=== PATIENT | male | born 1955 | race Caucasian/White ===

== ENCOUNTER 2017-01-05 00:36 | Emergency (ER) | payer OTHER, MEDICARE ==
[~2017-01-05] VITALS: Ht 170.2 cm; Wt 113.4 kg
[2017-01-05 00:36] VITALS: BP 171/98; PULSE 69; RESP 19; TEMP 97.7; O2SAT 100
[2017-01-05] MEDS ORDERED: NACL 0.9% 1,000 ML IV ONE (00:45)
[2017-01-05 01:15] LABS: ABG TOTAL HEMOGLOBIN 11.1 G/dL (12.0-18.0); BLOOD GAS BASE EXCESS -2.1 mmol/L (-3.0-3.0); BLOOD GAS PH 7.565 (7.350-7.450)
[2017-01-05 01:16] LABS: BLOOD GAS COHb% 0.3 % (0.5-1.5); BLOOD O2Hb% 98.4 % (94.0-97.0)
[2017-01-05 01:24] LABS: INR 0.9 (0.80-1.20); PROTHROMBIN TIME 9.6 SECS (9.5-12.5)
[2017-01-05 01:28] LABS: CALCIUM 8.1 mg/dL (8.4-11.0); POTASSIUM 4.5 mmol/L (3.5-5.1)
[2017-01-05 01:34] LABS: TOTAL BILIRUBIN 0.4 mg/dL (0.0-1.0); TOTAL PROTEIN, SERUM 6.6 g/dL (6.4-8.3)
[2017-01-05 01:39] LABS: CREATININE 10.75 mg/dL (0.55-1.30)
[2017-01-05] MEDS ORDERED: NEPH PO (01:59)
[2017-01-05] MEDS ORDERED: INSU100V9 SUBCUT (01:59)
[2017-01-05] MEDS ORDERED: FURO-150 PO (01:59)
[2017-01-05] MEDS ORDERED: INSU100V26 SUBCUT (01:59)
[2017-01-05] MEDS ORDERED: LOSA25TA3 PO (01:59)
[2017-01-05 02:05] LABS: HEMATOCRIT 32.8 % (36-54); HEMOGLOBIN 11.1 g/dL (14.0-18.0); MEAN CORPUSCULAR HEMOGLOBIN 32 pg (27-31); MEAN CORPUSCULAR VOLUME 94 fL (79.0-98.0); RED BLOOD CELL COUNT(AUTO) 3.51 MIL/uL (4.2-6.2); WHITE BLOOD COUNT (AUTO) 8.5 K/uL (4.8-10.8)
[2017-01-05 02:06] LABS: BASOPHILS % (AUTO) 1.4 % (0.0-2.0); EOSINOPHILS # (AUTO) 0.7 K/uL (0.0-0.4); EOSINOPHILS % (AUTO) 8.2 % (0.0-4.0); LYMPHOCYTES # (AUTO) 1.6 K/uL (1.0-5.5); LYMPHOCYTES % (AUTO) 19.3 % (20.5-51.5); MEAN CORPUSCULAR HGB CONC 34 % (32-36); MONOCYTES # (AUTO) 0.9 K/uL (0.0-1.0); MONOCYTES % (AUTO) 10.6 % (1.7-9.3); NEUTROPHILS # (AUTO) 5.2 K/uL (1.8-7.7); NEUTROPHILS % (AUTO) 60.5 % (40.0-70.0); PLATELET COUNT (AUTO) 246 K/uL (130-430); RED CELL DISTRIBUTION WIDTH 13.2 % (9.0-15.0)
[2017-01-05 02:07] LABS: BASOPHILS # (AUTO) 0.1 K/uL (0.0-0.2)
[2017-01-05] MEDS ORDERED: LIDOCAINE VISCOUS 2%, 15 ML UDC MM ONE (02:30)
[2017-01-05 03:53] VITALS: BP 140/62; PULSE 65; RESP 18; TEMP 97.9; O2SAT 99
== END 2017-01-05 03:53 | disposition home or self-care (01) ==
LOC: SED 00:36
DX: R06.4 Hyperventilation (principal); E11.29 Type 2 diabetes mellitus with other diabetic kidney complication; N28.9 Disorder of kidney and ureter, unspecified
CPT/HCPCS: 36415; 36600; 71010; 80053; 82803; 83605; 83880; 84484; 85025; 85379; 85610; 85730; 87040; 93005; 96360; 96361; 99285; J7030

== ENCOUNTER 2018-02-17 07:53 | Emergency (ER) | payer OTHER, MEDICARE ==
[~2018-02-17] VITALS: Ht 170.2 cm; Wt 107.0 kg
[~2018-02-17 07:53] MED LIST: FURO-150 PO; INSU100V26 SUBCUT; INSU100V9 SUBCUT; LOSA25TA3 PO; NEPH PO
[2018-02-17 08:00] VITALS: BP_SYST 170
[2018-02-17 08:34] LABS: BASOPHILS % (AUTO) 0.6 % (0.0-2.0); EOSINOPHILS # (AUTO) 0.4 K/uL (0.0-0.4); EOSINOPHILS % (AUTO) 5.3 % (0.0-4.0); HEMATOCRIT 25.6 % (36-54); HEMOGLOBIN 8.5 g/dL (14.0-18.0); LYMPHOCYTES # (AUTO) 1.3 K/uL (1.0-5.5); LYMPHOCYTES % (AUTO) 15.8 % (20.5-51.5); MEAN CORPUSCULAR HEMOGLOBIN 32 pg (27-31); MEAN CORPUSCULAR HGB CONC 33 % (32-36); MEAN CORPUSCULAR VOLUME 96 fL (79.0-98.0); MONOCYTES # (AUTO) 0.9 K/uL (0.0-1.0); NEUTROPHILS # (AUTO) 5.4 K/uL (1.8-7.7); NEUTROPHILS % (AUTO) 67.3 % (40.0-70.0); PLATELET COUNT (AUTO) 274 K/uL (130-430); RED BLOOD CELL COUNT(AUTO) 2.66 MIL/uL (4.2-6.2); RED CELL DISTRIBUTION WIDTH 14.4 % (9.0-15.0)
[2018-02-17 08:37] LABS: CALCIUM 9.3 mg/dL (8.4-11.0); POTASSIUM 4.9 mmol/L (3.5-5.1)
[2018-02-17 08:40] LABS: PROTHROMBIN TIME 9.9 SECS (9.5-12.5)
[2018-02-17 08:42] LABS: ALBUMIN 3.5 g/dL (3.4-4.8); TOTAL BILIRUBIN 0.4 mg/dL (0.0-1.0)
[2018-02-17 08:44] LABS: CREATININE 8.76 mg/dL (0.55-1.30)
[2018-02-17] MEDS ORDERED: LevALBUTEROL HCL 1.25 MG/0.5 ML *CONC.* VIAL.NEB (XOPENEX CONC.) INH ONE (08:45)
[2018-02-17 08:50] LABS: BILIRUBIN,URINE NEGATIVE (NEGATIVE); BLOOD, URINE 1+ (NEGATIVE); CLARITY/URINE CLEAR (CLEAR); COLOR,URINE YELLOW (YELLOW); GLUCOSE,URINE 3+ (NEGATIVE); KETONES,URINE NEGATIVE (NEGATIVE); LEUKOCYTE ESTERASE ,URINE NEGATIVE (NEGATIVE); NITRITE, URINE NEGATIVE (NEGATIVE); PROTEIN URINE 2+ (NEGATIVE); UROBILINOGEN,URINE 0.2 (0.2-1.0)
[2018-02-17 08:59] LABS: BACTERIA,URINE FEW /HPF (None Seen); MUCUS,URINE None Seen /LPF (None Seen); RBC,URINE 0-3 /HPF (0-3); WBC,URINE 0-3 /HPF (0-3)
[2018-02-17 09:34] VITALS: BP_SYST 145
== END 2018-02-17 09:34 | disposition home or self-care (01) ==
LOC: SED 07:53
DX: J44.1 Chronic obstructive pulmonary disease with (acute) exacerbation (principal); E11.9 Type 2 diabetes mellitus without complications; E11.29 Type 2 diabetes mellitus with other diabetic kidney complication; N28.9 Disorder of kidney and ureter, unspecified; Z79.899 Other long term (current) drug therapy
CPT/HCPCS: 36415; 71045; 80053; 81000; 83880; 84484; 85025; 85610; 93005; 94640; 99285; J7612